=== PATIENT | female | born 1985 | race Caucasian/White ===

== ENCOUNTER 2020-02-26 13:22 | Emergency (ER) | payer OTHER, SELFPAY ==
[~2020-02-26] VITALS: Ht 167.6 cm; Wt 45.4 kg
--- NOTE | 2020-02-26 13:59 | NUR ---
ARRIVAL PT ARRIVED TO ED WITH C/O RIGHT SIDE FACIAL SWELLING AND RIGHT NARE SWELLING. PT REPORTS HAVING "YELLOW, RUBBERY CLOTS" COMING OUT OF HER RIGHT NARE. PT REPORTS THE SWELLING STARTED AFTER USING COCAINE. BEDSIDE MONITORS APPLIED. VITAL SIGNS STABLE. BED IN LOW LOCKED POSITION.
[2020-02-26 14:04] VITALS: BP 131/73
[2020-02-26] MEDS ORDERED: AUGMENTIN 875-125 TABLET PO STA (14:43)
[2020-02-26] MEDS ORDERED: DECADRON IM STA (14:43)
[2020-02-26] MEDS ORDERED: DECADRON ONE (14:57)
[2020-02-26] MEDS ORDERED: AUGMENTIN 875-125 TABLET ONE (14:57)
--- NOTE | 2020-02-26 14:58 | ER.PDOC ---
General Chief Complaint: General Complaint Stated Complaint: nose swelling TRAVEL OUT OF US: No Time seen by MD: 14:30 Source: patient History of Present Illness Initial Comments patient reports that 4 days ago she snorted cocaine. She then began having purulent drainage from the right nares and now has swelling to the right face. No fever, chills. She is now having mild fullness to the right ear as well. She went to urgent care 2 days ago and was instructed to take OTC decongestants. They are not helping so she came here. Past Medical History Medical History: fibromyalgia Surgical History: no surgical history Social History Alcohol Use: occassionally Drug Use: cocaine, marijuana Reviewed Nursing Reviewed: Vital Signs, Abn. Noted, Nursing Assessment Review of Systems Constitutional: no symptoms reported EENTM: see HPI Respiratory: no symptoms reported Cardiovascular: no symptoms reported All Other Systems: Reviewed and Negative Physical Exam General Appearance: No Apparent Distress EENT: eyes nml inspection, pharynx nml, other (mild right facial swelling. right nares edematous with profuse purulent draionage. No bleeding. 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 NML as Tested, No Motor/Sensory Deficits, Alert, Normal Mood/Affect Skin: Normal Color Lymphatic: Other (right submandibular LAD) Results/Orders Results/Orders Orders - ANNY FREDERICK MD Dexamethasone Sodium Phosphate (Decadron (02/26/20 14:43) Amoxicillin/Potassium Clav (Augmentin 87 (02/26/20 14:43) Amoxicillin/Potassium Clav (Augmentin 87 (02/26/20 14:57) Dexamethasone Sodium Phosphate (Decadron (02/26/20 14:57) Vital Signs Date Time Temp Pulse Resp B/P (MAP) Pulse Ox O2 Delivery O2 Flow Rate FiO2 02/26/20 14:04 98.2 111 16 131/73 (92) 97 Room Air 02/26/20 14:04 98.2 111 16 02/26/20 14:04 98.2 111 16 97 ER DEPART Departure Time of Disposition: 15:02 Disposition: 01 HOME, SELF-CARE Impression: Primary Impression: Right maxillary sinusitis Condition: Stable Referrals: PCP,UNKNOWN (PCP) PRIMARY CARE PROVIDER Comments augmentin for 10 days Duration or Time Spent with Pa: 15 ANNY FREDERICK MD Feb 26, 2020 14:58
== END 2020-02-26 15:14 | disposition home or self-care (01) ==
LOC: ER 13:22
DX: J32.0 Chronic maxillary sinusitis (principal); F14.90 Cocaine use, unspecified, uncomplicated; F12.90 Cannabis use, unspecified, uncomplicated
CPT/HCPCS: 96372; 99283; J1100